=== PATIENT | female | born 1995 | race Caucasian/White ===

== ENCOUNTER → 2016-03-25 | Outpatient (CLI) | payer BC, OTHER ==
--- NOTE | 2016-03-25 16:03 | DIAGNOSTIC IMAGING REPORT ---
RIGHT FEMUR 2 VIEWS CLINICAL HISTORY: RIGHT HAMSTRING INJURY Right COMPARISON: None. DISCUSSION: The bones and joint spaces appear intact. There is no evidence of fracture, dislocation or bony disease. There is no evidence for soft tissue swelling. IMPRESSION: Negative study. Electronically signed by: Ramos Gonzalez M.D. 03/25/2016 4:02 PM Dictated Date/Time: 03/25/2016 4:01 PM
== END | disposition home or self-care (01) ==
LOC: C.RDSM 14:24
PROVIDERS: ATTEND Internal Medicine
DX: S76.301A Unspecified injury of muscle, fascia and tendon of the posterior muscle group at thigh level, right thigh, initial encounter (principal); X58.XXXA Exposure to other specified factors, initial encounter

== ENCOUNTER → 2016-04-15 | Outpatient (CLI) | payer BC, OTHER ==
--- NOTE | 2016-04-15 18:04 | DIAGNOSTIC IMAGING REPORT ---
MRI OF THE RIGHT THIGH WITHOUT IV CONTRAST CLINICAL HISTORY: Right leg pain. Hamstring strain. COMPARISON STUDY: Radiographs of the right femur dated 03/25/2016. TECHNIQUE: MRI of the right thigh is performed utilizing various T1 and T2-weighted sequences in the axial, sagittal, and coronal planes. IV contrast was not administered for this examination. FINDINGS: The visualized femur and right hemipelvis demonstrate normal marrow signal intensity. There is no MRI evidence of fracture or osteonecrosis. No marrow edema is identified. There is no evidence of greater trochanteric bursitis. The musculature of the right thigh is normal in bulk and signal intensity. There is mild tendinopathy and faint edema noted at the right hamstrings insertion. The hamstrings tendon appears intact. There is no right inguinal lymphadenopathy. IMPRESSION: 1. Findings are consistent with mild tendinopathy at the origin of the right hamstrings tendon. 2. The visualized hamstrings musculature is normal in bulk and signal intensity. 3. The visualized bony pelvis and right femur are normal in appearance. Dictated: 04/15/2016 5:32 PM Transcribed: 04/15/2016 6:04 PM Alessandro Electronically signed by: Pino Rai M.D. 04/15/2016 6:18 PM Dictated Date/Time: 04/15/2016 5:32 PM
== END | disposition home or self-care (01) ==
LOC: C.MRIBC 15:38
PROVIDERS: ATTEND Internal Medicine
DX: M79.604 Pain in right leg (principal)